=== PATIENT | male | born 1980 | race Caucasian/White ===

== ENCOUNTER 2016-05-26 09:55 | Inpatient (IN) | payer OTHER ==
[~2016-05-26] VITALS: Ht 180.3 cm; Wt 87.3 kg
[~2016-05-26 09:55] MED LIST: HYDROCODON-ACE1 EAC7 PO; KEFLEX500 MG PO; MOTRIN800 MG PO; NAPROXEN500 MG PO; NORCO 5/3251 TABLET PO; PERCOCET 5/31 TABLET PO
[2016-05-26 10:52] LABS: HEMATOCRIT 38.8 % (38.0-50.0); MCHC 33.2 G/DL (30.0-36.0); MCV 87.2 FL (86-99); MEAN PLAT.VOLUME 10.1 uM^3 (9.0-12.4); PLATELET COUNT 285 K/uL (156-360); RBC DIS.WIDTH-SD 40.2 % (39-53); RED BLOOD COUNT 4.45 M/uL (4.00-5.50); WHITE BLOOD COUNT 16.9 K/uL (4.1-10.2)
[2016-05-26 10:54] LABS: BASOPHIL COUNT 0.1 K/uL (0-0.1); EOSINOPHIL (%) 2.5 % (0-5); EOSINOPHIL COUNT 0.4 K/uL (0-0.3); IMMATURE GRANULOCYTE (%) 0.8 % (0.0-0.7); IMMATURE GRANULOCYTE COUNT 1.4 K/uL; LYMPHOCYTE COUNT 2.5 K/uL (1.0-2.8); MONOCYTE (%) 10.4 % (3-12); MONOCYTE COUNT 1.8 K/uL (0-0.8)
[2016-05-26 10:56] LABS: CHLORIDE 106 mEq/L (99-109); POTASSIUM 4.2 mEq/L (3.7-5.4); SODIUM 140 mEq/L (136-147)
[2016-05-26 10:58] LABS: GLUCOSE 85 mg/dL (70-99)
[2016-05-26 10:59] LABS: ANION GAP 12 MEQ/L (2-14)
[2016-05-26 11:02] LABS: GFR ESTIMATE (CALCULATED) > 59 mL/min/
[2016-05-26 11:03] LABS: UREA NITROGEN (BUN) 14 mg/dL (9-23)
[2016-05-26] MEDS ORDERED: ADVIL200 MG PO (14:12)
[2016-05-26 16:57] VITALS: BP 131/63
[2016-05-26 22:12] VITALS: BP 117/56
[2016-05-27 06:53] LABS: ALKALINE PHOSPHATASE 71 IU/L (3-129); ANION GAP 7 MEQ/L (2-14); CHLORIDE 106 MEQ/L (99-109); GFR ESTIMATE (CALCULATED) > 59 mL/min/; GLUCOSE 93 mg/dL (70-99); HEMATOCRIT 34.7 % (38.0-50.0); MCH 28.6 PG (29.0-34.0); MCHC 32.6 G/DL (30.0-36.0); MCV 87.8 FL (86-99); MEAN PLAT.VOLUME 10.9 uM^3 (9.0-12.4); PLATELET COUNT 225 K/uL (156-360); RBC DIS.WIDTH-CV 13.3 % (11.8-14.6); RED BLOOD COUNT 3.95 M/uL (4.00-5.50); SAMPLE HEMOLYSIS CHECK 0; SAMPLE ICTERIC CHECK 0; SAMPLE LIPEMIA CHECK 0; SODIUM 141 MEQ/L (136-147); TOTAL BILIRUBIN 0.4 MG/DL (0.0-1.0); UREA NITROGEN (BUN) 13 mg/dL (9-23)
[2016-05-27 06:54] LABS: WHITE BLOOD COUNT 11.6 K/uL (4.1-10.2)
[2016-05-27 08:01] VITALS: BP 128/63
[2016-05-27 16:03] VITALS: BP 147/74
[2016-05-27 23:45] VITALS: BP 147/77
[2016-05-28 09:20] VITALS: BP 125/76
[2016-05-28 10:24] LABS: HPCA INDEX 0.16
[2016-05-28 16:23] VITALS: BP 125/76
[2016-05-28 22:58] VITALS: BP 127/80
[2016-05-29 07:13] VITALS: BP 133/84
[2016-05-29 07:18] LABS: BASOPHIL COUNT 0.1 K/uL (0-0.1); EOSINOPHIL (%) 3.2 % (0-5); EOSINOPHIL COUNT 0.2 K/uL (0-0.3); HEMATOCRIT 34.9 % (38.0-50.0); LYMPHOCYTE COUNT 2.6 K/uL (1.0-2.8); MCH 27.1 PG (29.0-34.0); MCHC 30.9 G/DL (30.0-36.0); MCV 87.7 FL (86-99); MEAN PLAT.VOLUME 9.8 uM^3 (9.0-12.4); MONOCYTE (%) 8.9 % (3-12); MONOCYTE COUNT 0.6 K/uL (0-0.8); NEUTROPHIL (%) 46.8 % (45-76); NEUTROPHIL COUNT 3.1 K/uL (1.8-6.4); PLATELET COUNT 267 K/uL (156-360); RBC DIS.WIDTH-CV 13.2 % (11.8-14.6); RBC DIS.WIDTH-SD 42.4 % (39-53); RED BLOOD COUNT 3.98 M/uL (4.00-5.50); WHITE BLOOD COUNT 6.5 K/uL (4.1-10.2)
[2016-05-29 07:23] LABS: ANION GAP 6 MEQ/L (2-14); CHLORIDE 108 MEQ/L (99-109); GFR ESTIMATE (CALCULATED) > 59 mL/min/; GLUCOSE 90 mg/dL (70-99); SAMPLE HEMOLYSIS CHECK 0; SAMPLE ICTERIC CHECK 0; SAMPLE LIPEMIA CHECK 0; SODIUM 142 MEQ/L (136-147); UREA NITROGEN (BUN) 9 mg/dL (9-23)
[2016-05-29] MEDS ORDERED: AUGMENTIN875 MG PO (14:57)
== END 2016-05-29 17:47 | disposition home or self-care (01) | DRG 603 ==
LOC: EME 09:55 → 5EAST 15:49 → EDOF 15:49 → 5EAST 16:44
PROVIDERS: Emergency Medicine; Hospitalist; Internal Medicine
PROC: 0H9CXZX Drainage of Left Upper Arm Skin, External Approach, Diagnostic (ICD-10-PCS; principal; 2016-05-26)
PROC: 0HDCXZZ Extraction of Left Upper Arm Skin, External Approach (ICD-10-PCS; 2016-05-28)
DX: L02.414 Cutaneous abscess of left upper limb (principal); F11.20 Opioid dependence, uncomplicated; L03.114 Cellulitis of left upper limb; F17.210 Nicotine dependence, cigarettes, uncomplicated
CPT/HCPCS: 73701; 80048; 80053; 80202; 85025; 85027; 86803; 87040; 87070; 87075; 87076; 87185; 87205; 99281; 99285; J0295; J1650; J1885; J2270; J3370; J7030; J7040; J7050

== ENCOUNTER 2017-09-20 13:36 | Emergency (ER) | payer OTHER ==
[~2017-09-20] VITALS: Ht 180.3 cm; Wt 91.1 kg
[~2017-09-20 13:36] MED LIST changes: +ADVIL200 MG PO; +AUGMENTIN875 MG PO
[2017-09-20 15:57] VITALS: BP 138/76
== END 2017-09-20 15:57 | disposition home or self-care (01) ==
LOC: EME 13:36
DX: M25.552 Pain in left hip (principal); F17.200 Nicotine dependence, unspecified, uncomplicated; Z87.19 Personal history of other diseases of the digestive system
CPT/HCPCS: 73502; 99281; 99284